=== PATIENT | female | born 2000 | race Caucasian/White ===

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

== ENCOUNTER → 2021-02-07 | Outpatient (CLI) | payer BC ==
[2021-02-08 19:55] LABS: TB GOLD INTERPRETATION.TB GOLD Negative (Negative)
== END ==
LOC: LAB 16:18
PROVIDERS: Physician Assistant
DX: Z11.1 Encounter for screening for respiratory tuberculosis (principal)

== ENCOUNTER → 2021-05-24 | Outpatient (CLI) | payer BC | LOC: RAD 11:57 | DX: M54.6 Pain in thoracic spine (principal) ==

== ENCOUNTER → 2021-06-20 | Outpatient (CLI) | payer BC | LOC: LAB 13:49 | DX: N91.2 Amenorrhea, unspecified (principal) ==

== ENCOUNTER → 2021-09-12 | Outpatient (CLI) | payer BC ==
[2021-09-12 12:45] LABS: BASO # 0.03 K/mm3 (0.02-0.10); EOS # 0.09 K/mm3 (0.04-0.40); EOS % 1.2 % (0.1-4.0); HEMATOCRIT 41.1 % (35.0-45.0); HEMOGLOBIN 13.8 g/dL (12.0-15.0); LYMPH# 1.66 K/mm3 (1.20-3.40); MEAN CELL VOLUME 92 fl (78-95); MEAN CORPUSCULAR HEMOGLOBIN 31 pg (26-32); MEAN CORPUSCULAR HGB CONC 34 g/dL (33-37); MEAN PLATELET VOLUME 9.7 fl (7.4-10.4); MONO # 0.67 K/mm3 (0.10-0.60); NEU # 5.31 K/mm3 (1.40-6.50); PLATELET COUNT 197 K/mm3 (130-400); RED BLOOD COUNT 4.49 M/mm3 (4.10-5.30); RED CELL DISTRIBUTION WIDTH 12.3 % (11.5-14.5); WHITE BLOOD COUNT 7.8 K/mm3 (4.8-10.8)
== END ==
LOC: LAB 12:30
PROVIDERS: Nurse Practitioner Family
DX: J02.9 Acute pharyngitis, unspecified (principal); R53.83 Other fatigue; R59.0 Localized enlarged lymph nodes

== ENCOUNTER → 2022-01-23 | Outpatient (CLI) | payer BC | LOC: LAB 16:34 | DX: Z20.822 Contact with and (suspected) exposure to COVID-19 (principal) ==

== ENCOUNTER → 2022-02-08 | Outpatient (CLI) | payer BC | LOC: RAD 09:40 | DX: R14.0 Abdominal distension (gaseous) (principal); R10.9 Unspecified abdominal pain ==

== ENCOUNTER → 2022-03-09 | Outpatient (CLI) | payer BC ==
[2022-03-09 17:54] LABS: CLUE CELLS PRESENT (Not Observd)
== END ==
LOC: LAB 17:32
PROVIDERS: Nurse Practitioner Family
DX: Z20.2 Contact with and (suspected) exposure to infections with a predominantly sexual mode of transmission (principal); N89.8 Other specified noninflammatory disorders of vagina
CPT/HCPCS: Q0111